=== PATIENT | male | born 1970 | race Caucasian/White ===

== ENCOUNTER 2017-10-26 09:19 | Day surgery (SDC) | payer BC ==
--- NOTE | 2017-10-14 07:25 | HP ---
PREOPERATIVE HISTORY AND PHYSICAL: DATE OF ADMISSION: 10/26/17 PROVIDER: Kassie Brunner MD * (DICTATED BY NATASHA GARCIA) CHIEF COMPLAINT: Left shoulder pain. HISTORY OF PRESENT ILLNESS: Jordin is a 47-year-old male followed by Dr. Brunner for ongoing pain in his left shoulder. He has been doing physical therapy exercises and has also rested but as soon as he returns to work, he has an immediate increase in pain. He denies any specific numbness or tingling. He does have difficulty sleeping on it. He denies any recent injury. He is interested in surgical intervention at this point for correction of the problem. PAST MEDICAL HISTORY: None. PAST SURGICAL HISTORY: Right foot ORIF and right foot hardware removal. He reports no complications with anesthesia with those procedures. CURRENT MEDICATIONS: Ibuprofen as needed for pain. ALLERGIES: No known drug allergies. SOCIAL HISTORY: He works as a [employer]. The patient chews tobacco. He has never smoked cigarettes. He denies alcohol use. REVIEW OF SYSTEMS: A 14-point review of systems was discussed with the patient. All systems were negative except discussed in the HPI. PHYSICAL EXAMINATION GENERAL: He is a well-developed, well-nourished, pleasant male, in no acute distress at rest. He is alert and oriented x3 with appropriate mood and affect. VITAL SIGNS: The patient is 6 feet tall, 206 pounds, blood pressure 122/82, pulse of 72, respirations 16, temperature 97.7. HEENT: Normocephalic, atraumatic. Hearing and vision are grossly intact. NECK: Trachea is midline. RESPIRATORY: Lungs are clear to auscultation bilaterally. No wheezes, rales, or rhonchi. CARDIOVASCULAR: Regular rate and rhythm. No murmurs, rubs, or gallops. Normal S1, S2. ABDOMEN: Soft, nondistended, nontender. Normal bowel sounds. EXTREMITIES: Exam of the left upper extremity, skin is intact without abrasions or open wounds. There is no erythema or warmth. He has forward flexion to 160 degrees, abduction to 150 degrees with a lot of pain. He has mild amount of weakness in the left, 4+/5 strength. He has positive impingement , Rodriguez, Newton's, and speeds tests bilaterally. External rotation is to 75 degrees. Sensation to light touch is intact distally with a 2+ radial pulse. IMPRESSION: Left shoulder rotator cuff tear and subacromial impingement. PLAN: The patient is to undergo left shoulder arthroscopic rotator cuff repair , decompression, debridement, and subpectoral biceps tenodesis by Dr. Brunner on 10/26/17. The risks, benefits, and postoperative course were discussed with the patient at length and he would like to proceed. All of his questions were answered to his full satisfaction. We will follow up with the patient postoperatively. NATASHA GARCIA [id number]/[facility] #: [id number] HELADIO
[~2017-10-26 09:19] MED LIST: Buffered Lidocaine 0.9% SYRIN* 5 ML/SYR SYRINGE INTRADERM ONE
[2017-10-26] MEDS ORDERED: ceFAZolin 2 GM PREMIX (*) 2 GM/50 ML BAG IVPB ONE (09:28)
[2017-10-26] MEDS ORDERED: Bupivacaine 0.25% SDV* 30 ML ONE ×2 (10:14→10:41)
[2017-10-26] MEDS ORDERED: Midazolam* 1 MG/ML 5 ML VIAL (5 MG) ONE (10:40)
[2017-10-26] MEDS ORDERED: Propofol* 10 MG/ML 20 ML BTL IV PUSH ONE (10:55)
[2017-10-26] MEDS ORDERED: fentaNYL* 50 MCG/ML 2 ML VIAL (100 MCG VIAL) ONE (10:55)
[2017-10-26] MEDS ORDERED: Dexamethasone IV* 4 MG/ML 1 ML (4 MG) ONE (11:07)
[2017-10-26] MEDS ORDERED: DiMENhydriNATE IV* 50 MG/ML VIAL IV PUSH PRN (11:43)
[2017-10-26] MEDS ORDERED: HYDROmorphone INJ* 1 MG/ML CARPUJECT SYRINGE IV PRN (11:43)
[2017-10-26] MEDS ORDERED: fentaNYL* 50 MCG/ML 2 ML VIAL (100 MCG VIAL) IV PRN (11:43)
[2017-10-26] MEDS ORDERED: Naloxone* 0.4 MG/ML 1 ML VIAL IV PRN (11:43)
[2017-10-26] MEDS ORDERED: HYDROcodone/ACETAMIN 5-325 MG* 1 TAB PO PRN (11:43)
[2017-10-26] MEDS ORDERED: oxyCODONE/Acetamin 5/325 MG* TAB PO PRN (11:43)
[2017-10-26] MEDS ORDERED: Ondansetron INJ* 2 MG/ML VIAL IV PRN (11:43)
[2017-10-26 13:45] VITALS: BP 138/88
--- NOTE | 2017-10-27 12:29 | OP ---
CC: PCP, Leighton Reynolds MD * RE-DICTATED OPERATIVE REPORT: DATE OF SURGERY: 10/26/17 - OR EAST DATE OF : 70 ATTENDING SURGEON: Kassie Brunner MD LOSS PREVENTION GUARD: NATASHA Faye. An clinical trial assistant was needed for the entirety of the case to help with positioning, retraction and was utilized throughout all portions of the case. ANESTHESIOLOGIST: Ivan Cardenas MD ANESTHESIA: General interscalene block. PREOPERATIVE DIAGNOSIS: Left shoulder high-grade partial thickness rotator cuff tear with superior labral tear from anterior to posterior. POSTOPERATIVE DIAGNOSIS: Full thickness tear of the supraspinatus with superior labral tear. PROCEDURE PERFORMED: 1. Left shoulder arthroscopy with glenohumeral debridement. 2. Subacromial decompression with acromioplasty. 3. Rotator cuff repair in a double-row fashion of the supraspinatus tendon. 4. Subpectoral biceps tenodesis. COMPLICATIONS: None. ESTIMATED BLOOD LOSS: Minimal. IMPLANTS USED: Delgadillo and Nephew one Healicoil 4.75, one MultiFix along with one 2.8 mm Q-FIX anchor. INDICATIONS: Jordin Nickerson is a 47-year-old male who has had persistent bilateral shoulder pain for months. He works in house construction for living. He said the left shoulder is worse than the right side. The left side demonstrated a high-grade partial thickness tear. He failed conservative management including injections, antiinflammatories, physical therapy and he has elected to proceed with surgical treatment. The patient does have a history of using chewed tobacco up to one can a day. He was counseled significantly prior to surgery to quit chewing tobacco, he was also prescribed Chantix, as this can affect the healing rate. Risks and benefits of surgery were discussed at length including, but are not limited to bleeding, infection, damage to nerves, vessels, surrounding structures, wound nonhealing, persistent pain, need for further surgery, scarring, stiffness, incomplete relief of symptoms and risk of anesthesia. DESCRIPTION OF PROCEDURE: The patient was greeted in the preoperative area by the attending surgeon. Correct extremity was marked and the consent was confirmed. He underwent interscalene nerve block by the anesthesiologist after he was brought back to the operating suite, where he was placed in supine position on the operating table. He then underwent general anesthesia and endotracheal intubation after which he was placed in the right lateral decubitus position with all bony prominences padded. He was secured with a pegboard. An axillary roll was placed and his left arm was draped unsterile with 10 pounds of traction. The left shoulder was prepped and draped in the usual sterile fashion beginning with chlorhexidine soap scrub, and alcohol wipe and a final prep with ChloraPrep. After appropriate surgical pause indicating site, side, procedure and administration of antibiotics, the standard postero-lateral portal was made with the 11 blade. The scope was introduced into the joint. The joint was examined, there was abundant hyperemia and erythematous tissue and synovitis present. There was evidence of superior labral tear with a positive peel-back sign and tendonitis along the biceps. The undersurface of the supraspinatus had high-grade partial thickness tearing. The subscapularis was intact. The anterior portal was made in outside-in fashion. The shaver was used to debride the anterior, posterior and superior labrum, which demonstrated the peel-back sign. The biceps was then taken through a range of motion and found to have abundant synovitis. This was then tenotomized using electrocautery device with scissors. The undersurface of the subscapularis was intact. The inferior recess was intact. The rotator cuff was tagged with an 0 PDS suture. All fluid and debris was removed and attention was directed to the subacromial space. The scope was repositioned in the subacromial space. There was a small fluid salgado back indicating a full thickness tear. The lateral portal was made in an outside-in fashion. A shaver was used to debride the bursitis back. The undersurface of the acromion was skeletonized using electrocautery device and acromioplasty was done using 4-0 oval nivia. The bone quality was somewhat soft. Once this was completed, all fluid and debris was removed. Attention was directed to the rotator cuff. After the abundant bursa and synovitis were removed, attention was directed to the rotator cuff. It was probed where the PDS suture had marked the tendon tear. This was the superior portion of the supraspinatus. The 11-blade was used to complete the tear. The shaver and electrocautery device were used to debride the rotator cuff and skeletonize the greater tuberosity. The tuberosity was also prepared using the rasp as well as 4-0 oval nivia. After this was done through a separate stab incision, a 4.75 Healicoil anchor was placed with excellent purchase. Sutures were passed through the tendon in horizontal mattress configuration and then tied down using arthroscopic knot tying. Sutures were then passed through a MultiFix anchor, which was secured for lateral row fixation. Final images were obtained. The shoulder was gently taken through a range of motion. Fluid and debris was removed from this portion of the case and attention was directed to the biceps. The bed was airplaned to the left side. The anterior aspect of the shoulder was prepped again using ChloraPrep. A 15 blade was used to make an incision in line with the biceps tendon encompassing the inferior two-thirds of the pec. The soft tissues were carefully dissected using the Metzenbaum scissors. Once the fascia was identified, the remainder of the dissection was done bluntly. The Ros was used to elevate the pec and the bicipital groove was identified. The biceps was brought through the groove and found to have abundant synovitis and tendinopathy. The groove was prepared in the usual fashion using the electrocautery device, the red ball rasp and osteotome. The Q-FIX guide was then used to drill unicortically. The Q-FIX reported excellent purchase and then passed through the tendon approximately 1 cm proximal to the musculotendinous junction. Excess tendon was sharply excised and the biceps was shoveled back into the wound. This was then tied down. The wounds were copiously irrigated with sterile saline. The portal sites were irrigated. The portals were closed with 3-0 nylon. The anterior wound was closed in layers with 2-0 Vicryl and 3-0 Monocryl. Sterile dressings were applied. The anterior wound was injected with 20 cc of 0.25% Marcaine plain. A Cryo/Cuff was placed as well as an UltraSling. He was awoken from anesthesia and transferred to the PACU in stable condition. POSTOPERATIVE PLAN: He will be nonweightbearing. He will be in a sling for 6 weeks. He will be discharged on pain medications and antibiotics. DVT prophylaxis was considered, but deferred due to no previous personal or family history. I will see the patient back in 2 weeks. [id number]/[facility] #: [id number] WMCHEALTHEarle
--- NOTE | 2017-10-27 12:29 | OP ---
OPERATIVE REPORT: DATE OF OPERATION: 10/26/17 DATE OF : 70 SURGEON: Kassie Brunner MD AUTOMOTIVE GLAZIER: Nahomi Benítez. An physical therapy assistant instructor was needed for the entirety of the case to help with positioning, retraction and was utilized throughout all portions of the case. ANESTHESIOLOGIST: Dr. Cardenas. ANESTHESIA: General interscalene block. PRE-OP DIAGNOSIS: Left shoulder high-grade partial thickness tear of the supraspinatus with superior labral tear. DICTATION ENDS HERE [id number]/[facility] #: [id number] MTDD
== END 2017-10-26 13:52 | disposition home or self-care (01) ==
LOC: OREAST 09:19
PROVIDERS: ATTEND Orthopaedic Surgery
DX: S46.012A Strain of muscle(s) and tendon(s) of the rotator cuff of left shoulder, initial encounter (principal); S43.492A Other sprain of left shoulder joint, initial encounter; X58.XXXA Exposure to other specified factors, initial encounter; Y92.9 Unspecified place or not applicable; Z72.0 Tobacco use; G89.18 Other acute postprocedural pain
CPT/HCPCS: C1713; C1776; J0690; J1100; J2250; J2704; J3010

== ENCOUNTER 2018-09-03 07:43 | Emergency (ER) | payer BC ==
[2018-09-03 10:00] VITALS: BP 146/86
--- NOTE | 2018-09-03 10:01 | UC ---
Head Injury HPI - HPI Summary HPI Summary: WAS AT WORK JUST PRIOR TO ARRIVAL WHEN HE REPORTEDLY FELL OFF A STEP LADDER AND STRUCK THE BACK OF HIS HEAD. PATIENT STATES HE HAD LOC BUT IS UNCLEAR OF HOW LONG HE WAS OUT. STATES HE HAS NO MEMORY OF THE INCIDENT OR WHAT HAPPENED JUST AFTER BUT FEELS FINE NOW OTHER THAN A MILD HEADACHE AND DIZZINESS. HEAD FEELS A LITTLE FOGGY. NO NAUSEA. NO NECK PAIN. - History Of Current Complaint Chief Complaint: UCHeadInjury Stated Complaint: HEAD INJURY Time Seen by Provider: 09/03/18 08:00 Hx Obtained From: Patient Onset/Duration: Sudden Onset, Lasting Hours, Still Present Severity Currently: Moderate Severity Initially: Moderate Pain Intensity: 4 Pain Scale Used: 0-10 Numeric Character: Dull Aggravating Factor(s): Nothing Alleviating Factor(s): Nothing Associated Signs And Symptoms: Positive: LOC Duration Unknown, Memory Loss. Negative: Confusion, Neck Pain, Nausea, Vomiting - Allergies/Home Medications Allergies/Adverse Reactions: Allergies Allergy/AdvReac Type Severity Reaction Status Date / Time No Known Allergies Allergy Verified 10/26/17 09:37 PMH/Surg Hx/FS Hx/Imm Hx Previously Healthy: Yes - Surgical History Surgical History: Yes Surgery Procedure, Year, and Place: 1998 LEFT INDEX FINGER REPAIR [place]. 1999 [place], [place]. [place] [place] [place] [facility] [place] [facility] [place]/26/17 -LT SHOULDER - RCT - Family History Known Family History: Positive: Non-Contributory - Social History Alcohol Use: Weekly Alcohol Amount: 4 beers on weekends Substance Use Type: None Smoking Status (MU): Current Every Day Smoker Type: Smokeless Tobacco Amount Used/How Often: chews tobacco - reports 3 tins per week for 30 years Length of Time of Smoking/Using Tobacco: 15 YRS Have You Smoked in the Last Year: No Review of Systems All Other Systems Reviewed And Are Negative: Yes Constitutional: Positive: Negative Skin: Positive: Negative Eyes: Negative: Photophobia Respiratory: Positive: Negative Cardiovascular: Positive: Negative Gastrointestinal: Positive: Negative Neurological: Positive: Headache, Other - DIZZY Physical Exam Triage Information Reviewed: Yes Appearance: Well-Appearing, No Pain Distress, Well-Nourished Vital Signs: Initial Vital Signs Temp 98 F 09/03/18 07:46 Pulse 75 09/03/18 07:46 Resp 17 09/03/18 07:46 BP 149/90 09/03/18 07:46 Pulse Ox 100 09/03/18 07:46 Vital Signs Reviewed: Yes Eyes: Positive: Conjunctiva Clear ENT: Positive: Hearing grossly normal, Pharynx normal, TMs normal Neck: Positive: Supple, Nontender, No Lymphadenopathy Respiratory Exam: Normal Cardiovascular Exam: Normal Abdomen Description: Positive: Soft Musculoskeletal: Positive: No Edema, Other: - NO C-SPINE TENDERNESS Neurological: Positive: Alert, Other: - CN II-XII GROSSLY INTACT BILATERALLY. RAPID ALTERNATING MOVEMENTS INTACT. NEG PRONATOR DRIFT. NEG ROMBERG. 5/5 STRENGTH. HEEL TO SHUKLA INTACT BILATERALLY. TANDEM GAIT INTACT. FINGER TO NOSE INTACT. Psychological: Positive: Age Appropriate Behavior Skin: Positive: Other - NO RACCOON EYES OR ROSADO SIGN. Negative: Rashes Diagnostics - Radiology CT HEAD W/O CONTRAST Radiology Interpretation Completed By: Radiologist Summary of Radiographic Findings: NO EVIDENCE FOR ACUTE INTRACRANIAL ABNORMALITY. CT C-SPINE W/O CONTRAST Radiology Interpretation Completed By: Radiologist Summary of Radiographic Findings: 1. STRAIGHTENING OF THE CERVICAL SPINE, NO EVIDENCE FOR FRACTURE. 2. MILD CERVICAL SPONDYLOSIS DESCRIBED. Head Injury Course/Dx - Differential Dx/Diagnosis Provider Diagnosis: Concussion Discharge - Sign-Out/Discharge Documenting (check all that apply): Patient Departure All imaging exams completed and their final reports reviewed: Yes - Discharge Plan Condition: Stable Disposition: HOME Patient Education Materials: Concussion (ED), Head Injury (ED) Referrals: Gail MUÑOZ,Leighton Dobson [Primary Care Provider] - If Needed Additional Instructions: CT HEAD UREMARKABLE. CT CERVICAL SPINE SHOWED SOME DEGENERATIVE CHANGE. OKAY FOR TYLENOL TODAY FOR HEADACHE. STARTING TOMORROW CAN GIVE IBUPROFEN IF NEEDED. LIMIT SCREEN TIME AND AVOID ACTIVITIES THAT COULD RESULT IN ADDITIONAL HEAD INJURY. NO SPORTS FOR AT LEAST A WEEK. FOLLOW-UP WITH PCP IF SYMPTOMS ARE PERSISTENT AFTER 1 WEEK. GO TO THE ED WITHOUT FAIL IF YOU DEVELOP UNEQUAL PUPILS, VISUAL DISTURBANCE, GAIT INSTABILITY, SPEECH DIFFICULTY, NAUSEA/VOMITING, WORSENING HEADACHE, DIZZINESS, CONFUSION, WEAKNESS OR ANY OTHER CONCERNING SYMPTOMS. [facility] [phone] (M-F 8AM-4PM) [email or web address] (FOR HELP, INFO OR TO CONNECT WITH A SUPPORT GROUP) - Billing Disposition and Condition Condition: STABLE Disposition: Home
== END 2018-09-03 10:20 | disposition home or self-care (01) ==
LOC: UCEAST 07:43
DX: S06.0X9A Concussion with loss of consciousness of unspecified duration, initial encounter (principal); F17.290 Nicotine dependence, other tobacco product, uncomplicated; W11.XXXA Fall on and from ladder, initial encounter; Y92.9 Unspecified place or not applicable; Y99.0 Civilian activity done for income or pay
CPT/HCPCS: 70450; 72125; 99211; G0463

== ENCOUNTER 2018-10-28 12:48 | Emergency (ER) | payer BC ==
[2018-10-28 12:54] VITALS: BP 158/99
--- NOTE | 2018-10-28 13:14 | UC ---
Dizzy HPI HPI Summary: dizziness x 1 day has not been feeling well for the past 2 weeks sudden onset as he was working symptoms are severe , worse with head movements , better with rest mild headaches, + nausea and vomited x 1 , no change in vision , no photophobia no chest pain , no sob had a concussion 2 months ago - History Of Current Complaint Chief Complaint: UCDizziness Stated Complaint: DIZZY Time Seen by Provider: 10/28/18 12:48 Hx Obtained From: Patient Onset/Duration: Sudden Onset, Lasting Days - 1, Still Present Timing: Constant Severity Initially: Moderate Severity Currently: Severe Pain Intensity: 8 Character: Room Spinning, Lightheaded, Dizzy Aggravating Factor(s): Position Change Alleviating Factor(s): Rest Associated Signs And Symptoms: Positive: Nausea, Vomiting. Negative: Diaphoresis, Tinnitus, Chest Pain, SOB, Palpitations, Unsteady Gait, Visual Changes, Decreased Oral Intake, Change In Medication, Change In Diet, OTC Medications - Allergies/Home Medications Allergies/Adverse Reactions: Allergies Allergy/AdvReac Type Severity Reaction Status Date / Time No Known Allergies Allergy Verified 10/28/18 12:54 Home Medications: Home Medications Cbd Oil 1 drop PO DAILY 10/28/18 [History] PMH/Surg Hx/FS Hx/Imm Hx - Additional Past Medical History Additional PMH: concussion 2 months ago - Surgical History Surgical History: Yes Surgery Procedure, Year, and Place: 1998 LEFT INDEX FINGER REPAIR [place]. 1999 VASECTOMY, [place]. 2012 RIGHT KNEE TORN [place]ISCUS,[facility] [place]. 2012 RIGHT ELBOW SURGERY,[facility] [place] 2013. [address] SUR[address] [facility] [place]. 2015 HARDWARE REMOVED FROM RIGHT FOOT [facility] [place]. 10/26/17 -LT SHOULDER - RCT - Family History Known Family History: Positive: Non-Contributory Negative: Diabetes - Social History Alcohol Use: Daily Alcohol Amount: 4 beers on weekends Substance Use Type: None Smoking Status (MU): Current Every Day Smoker Type: Smokeless Tobacco Amount Used/How Often: chews tobacco - reports 3 tins per week for 30 years Length of Time of Smoking/Using Tobacco: 15 YRS Have You Smoked in the Last Year: No Review of Systems All Other Systems Reviewed And Are Negative: Yes Constitutional: Positive: Negative Skin: Positive: Negative Eyes: Positive: Negative ENT: Positive: Negative Respiratory: Positive: Negative Neurological: Positive: Headache Is Patient Immunocompromised?: No Physical Exam Triage Information Reviewed: Yes Appearance: Well-Nourished, Pain Distress Vital Signs: Initial Vital Signs Temp 97.2 F 10/28/18 12:50 Pulse 74 10/28/18 12:50 Resp 18 10/28/18 12:50 BP 158/99 10/28/18 12:50 Pulse Ox 97 10/28/18 12:50 Vital Signs Reviewed: Yes Eye Exam: Normal Eyes: Positive: Conjunctiva Clear ENT: Positive: Normal ENT inspection, Hearing grossly normal, Pharynx normal, Pharyngeal erythema Neck: Positive: Supple, Nontender, No Lymphadenopathy Respiratory: Positive: Chest non-tender, Lungs clear, Normal breath sounds Cardiovascular: Positive: RRR, No Murmur, Pulses Normal Abdominal Exam: Normal Abdomen Description: Positive: Nontender, Soft. Negative: Distended, Guarding Bowel Sounds: Positive: Present Neurological: Positive: Alert Psychological Exam: Normal UC Physical Exam Vital Signs On Initial Exam: Initial Vitals Temp Pulse Resp BP Pulse Ox 97.2 F 74 18 158/99 97 10/28/18 12:50 10/28/18 12:50 10/28/18 12:50 10/28/18 12:50 10/28/18 12:50 - Neurological Exam Neurological: Normal, Sensory/Motor Intact, Alert, Oriented to Person Place, Time, CN Intact II-III, Abnormal Gait, Speech Normal Dizzy Course/Dx - Differential Dx/Diagnosis Provider Diagnosis: Vertigo Discharge - Sign-Out/Discharge Documenting (check all that apply): Patient Departure All imaging exams completed and their final reports reviewed: No Studies - Discharge Plan Condition: Stable Disposition: HOME Prescriptions: Meclizine TAB* [Antivert 12.5 TAB*] 25 mg PO TID PRN #15 tab PRN Reason: Dizziness Patient Education Materials: Vertigo (ED) Referrals: Gail MUÑOZ,Leighton Dobson [Primary Care Provider] - 5 Days - Billing Disposition and Condition Condition: STABLE Disposition: Home
== END 2018-10-28 13:20 | disposition home or self-care (01) ==
LOC: UCEAST 12:48
DX: R42 Dizziness and giddiness (principal); F17.210 Nicotine dependence, cigarettes, uncomplicated
CPT/HCPCS: 93005; 99212; G0463